=== PATIENT | female | born 1980 | race Two or more races ===

== ENCOUNTER 2018-01-18 13:42 | Emergency (ER) | payer MEDICAID, OTHER ==
[~2018-01-18] VITALS: Ht 152.4 cm; Wt 79.4 kg
[2018-01-18 13:48] VITALS: BP 159/94
== END 2018-01-18 15:37 | disposition home or self-care (01) ==
LOC: ER 13:46
DX: S39.012A Strain of muscle, fascia and tendon of lower back, initial encounter (principal); I10 Essential (primary) hypertension; Z88.8 Allergy status to other drugs, medicaments and biological substances; V43.52XA Car driver injured in collision with other type car in traffic accident, initial encounter; Y93.89 Activity, other specified; Y99.8 Other external cause status; Y92.89 Other specified places as the place of occurrence of the external cause
CPT/HCPCS: 72100